=== PATIENT | female | born 1995 | race Caucasian/White ===

== ENCOUNTER 2017-07-31 20:59 | Emergency (ER) | payer OTHER ==
[~2017-07-31] VITALS: Ht 160 cm; Wt 86.2 kg
[2017-07-31] MEDS ORDERED: VENTOLIN HFA18 GM INH (21:11)
[2017-07-31] MEDS ORDERED: FLOVENT DISKUS50 MCG INH (21:12)
== END 2017-07-31 21:32 | disposition home or self-care (01) ==
LOC: ED 20:59
DX: J45.901 Unspecified asthma with (acute) exacerbation (principal); Z88.0 Allergy status to penicillin; Z88.1 Allergy status to other antibiotic agents; Z79.899 Other long term (current) drug therapy
CPT/HCPCS: 99282

== ENCOUNTER 2018-03-26 13:37 | Emergency (ER) | payer BC, OTHER ==
[~2018-03-26] VITALS: Ht 160 cm; Wt 86.2 kg
[~2018-03-26 13:37] MED LIST: FLOVENT DISKUS50 MCG INH; VENTOLIN HFA18 GM INH
--- OUTSIDE RECORDS SUMMARY | 2018-03-26 13:40 | XMS ---
PreManage Notification: HUSAM MCCAIN Security As400 Developer Events No recent Security Events currently on file CRITERIA MET - [facility] CARE PROVIDERS MITCHEL MCCARTNEY Primary Care Current PHONE: [phone] KAREN Ledbetter Current PHONE: [phone] [facility] Primary Care [facility] PRIMARY CARE CNTR PHONE: Unknown [facility] Current PHONE: Unknown Guidelines Source: [facility] [place] Guidelines Date: 01/14/2017 Care Recommendation: -This patient has been identified as having >5 ED visits within the past year at EDs in [facility]. -Provide education regarding the appropriate use of emergency services. -Encourage f/u with primary care provider. -ED Provider is encouraged to review the patient's [place] Prescription Monitoring Program profile if there are concerns about potential medication seeking behaviors ESudha VISIT COUNT (12 MO.) 1 [facility] TOTAL 3 NOTE: Visits indicate total known visits. ED/UCC VISIT TRACKING (12 MO.) 03/26/2018 13:38 BRYON De Luna TYPE: Emergency COMPLAINT: - MEDICAL CLEARANCE 07/31/2017 21:00 BRYON [place] TYPE: Emergency COMPLAINT: - SOB DIAGNOSES: - Unspecified asthma with (acute) exacerbation - Other group home (current) drug therapy - Shortness of breath - Allergy status to penicillin - Allergy status to other antibiotic agents status 04/18/2017 21:49 Mohinder GONCALVES TYPE: Emergency DIAGNOSES: 0. Other dental procedure status 0. Periapical abscess without sinus 0. Localized swelling, mass and lump, head - R SIDE FACIAL SWELLING/PAIN INPATIENT VISIT TRACKING (12 MO.) No inpatient visits to display in this time frame [email or web address]
[2018-03-26] MEDS ORDERED: HYDROXYZINE HCL25 MG PO (18:29)
== END 2018-03-26 18:40 | disposition home or self-care (01) ==
LOC: ED 13:37
DX: F32.9 Major depressive disorder, single episode, unspecified (principal); J45.909 Unspecified asthma, uncomplicated; F17.200 Nicotine dependence, unspecified, uncomplicated; Z88.0 Allergy status to penicillin; Z88.1 Allergy status to other antibiotic agents
CPT/HCPCS: 36415; 80053; 80176; 81001; 84443; 84703; 85025; 99285; G0480

== ENCOUNTER 2018-05-12 19:09 | Emergency (ER) | payer BC, OTHER ==
[~2018-05-12] VITALS: Ht 160 cm; Wt 93.4 kg
--- OUTSIDE RECORDS SUMMARY | ~2018-05-12 | XMS | Clinical Summary ---
Demographics + + + | Address | [address] [place] [address] | | | [place] [address] | + + + | Home Phone | | + + + | Preferred Language | Unknown | + + + | Marital Status | Single | + + + | Temple Affiliation | Unknown | + + + | Race | Unknown | + + + | Ethnic Group | Unknown | + + + Author + + + | Author | [facility] | | | and [place] | + + + | Organization | [facility] | | | and [place] | + + + | Address | Unknown | + + + | Phone | Unavailable | + + + Support + + + + + | Name | Relationship | Address | Phone | + + + + + | Joe Comer | ECON | [address] [place] [address] | | | | | [place] [address] | | + + + + + Care Team Providers + +------+ + | Care First Press Operator Name | Role | Phone | + +------+ + | Jodie Gomez | PP | | + +------+ + Allergies + + + + + + | Active Allergy | Reactions | Severity | Noted | Comments | | | | | Date | | + + + + + + | Amoxicillin | Shortness Of Breath | High | 12/15/19 | | | | | | 14 | | + + + + + + | Doxycycline | Sensitivity | | //20 | | | | | | 16 | | + + + + + + | Penicillins | | | //20 | | | | | | 16 | | + + + + + + Current Medications + + + +---------+------+------+-------+ | Prescription | Sig. | Disp. | Refills | Star | End | Statu | | | | | | t | Date | s | | | | | | Date | | | + + + +---------+------+------+-------+ | Vit-Fe | | | 0 | 11/1 | | Activ | | Fumarate-FA | | | | 20 | | e | | (VOL-PLUS) 27-1 MG | | | | 16 | | | | TABS | | | | | | | + + + +---------+------+------+-------+ | acetaminophen | Take 1,000 mg by | | | | | Activ | | (TYLENOL) 500 mg | mouth every 6 hours | | | | | e | | tablet | as needed for Pain. | | | | | | + + + +---------+------+------+-------+ | diphenhydrAMINE | Take 25 mg by mouth | | | | | Activ | | (BENADRYL) 25 mg | every 6 hours as | | | | | e | | tablet | needed for Itching. | | | | | | + + + +---------+------+------+-------+ | azithromycin | Take 2 tablets by | 6 | 0 | 03/2 | | Activ | | (ZITHROMAX) 250 mg | mouth on day 1, and | tablet | | 1/20 | | e | | tablet | 1 tablet by mouth | | | 17 | | | | | every day | | | | | | + + + +---------+------+------+-------+ | benzonatate | Take 1 capsule by | 30 | 0 | 10/0 | | Activ | | (TESSALON) 100 mg | mouth 3 times daily | capsule | | 4/20 | | e | | capsuleIndications: | as needed for Cough. | | | 17 | | | | Viral URI with cough | | | | | | | + + + +---------+------+------+-------+ | fluticasone | Inhale 1 puff into | 1 | 0 | 04/0 | | Activ | | (FLOVENT HFA) 220 | the lungs 2 times | Inhaler | | 9/20 | | e | | mcg/puff | daily. | | | 18 | | | | inhalerIndications: | | | | | | | | Severe persistent | | | | | | | | asthma with | | | | | | | | exacerbation, SOB | | | | | | | | (shortness of | | | | | | | | breath), Cough, | | | | | | | | Wheezing | | | | | | | + + + +---------+------+------+-------+ | albuterol 90 | Inhale 2 puffs into | 1 | 0 | 04/0 | | Activ | | mcg/puff | the lungs every 6 | Inhaler | | 9/20 | | e | | inhalerIndications: | hours as needed for | | | 18 | | | | SOB (shortness of | Wheezing. | | | | | | | breath), Cough, | | | | | | | | Wheezing | | | | | | | + + + +---------+------+------+-------+ | albuterol 2.5 mg/3 | Inhale 1-2 | 60 vial | 0 | 04/0 | | Activ | | mL nebulizer | treatments in | | | 10/28 | | e | | solutionIndications: | nebulizer every 20 | | | 18 | | | | SOB (shortness of | minutes for 3 doses, | | | | | | | breath), Cough, | then 1-4 treatments | | | | | | | Wheezing, Severe | every 1-4 hours as | | | | | | | persistent asthma | needed | | | | | | | with exacerbation | | | | | | | + + + +---------+------+------+-------+ | Respiratory | 1 kit to be used | 1 each | 0 | 04/0 | | Activ | | Therapy Supplies | with nebulized | | | 10/28 | | e | | (NEBULIZER | albuterol | | | 18 | | | | COMPRESSOR) | | | | | | | | KITIndications: SOB | | | | | | | | (shortness of | | | | | | | | breath), Cough, | | | | | | | | Wheezing, Severe | | | | | | | | persistent asthma | | | | | | | | with exacerbation | | | | | | | + + + +---------+------+------+-------+ Active Problems + + + | Problem | Noted Date | + + + | Endometriosis | 03/16/2016 | + + + Resolved Problems + + + + | Problem | Noted | Resolved | | | Date | Date | + + + + | Hand pain, right | 04/06/19 | | | | 12 | 3 | + + + + | OTHandUNSPEC SUP INJURY ELB FOREARMandWRIST INF | 05/24/19 | | | | 11 | 3 | + + + + | FOOT SPRAIN, LEFT | 11/13/19 | | | | 10 | 3 | + + + + | Sinusitis, acute | 08/23/19 | | | | 10 | 3 | + + + + | INFLUENZA | 11/21/19 | | | | 09 | 3 | + + + + Immunizations + + + + | Name | Dates Previously Given | Next Due | + + + + | DTP (PED) | 12/06/2001, 08/30/1998, 1997, | | | | 1997, 1997 | | + + + + | HIB HBOC CONJUGATE, | 1997, 1997, 1997 | | | 4 DOSE (PED) | | | + + + + | Hep B (PED/ADOL) 3 | 1997 | | | DOSE | | | + + + + | IPV, 4 DOSE | 12/06/2001 | | | (PED/ADULT) | | | + + + + | MMR, 2 DOSE | 12/06/2001, 08/30/1998 | | | (PED/ADULT) | | | + + + + | POLIOVIRUS,OPV | 08/30/1998, 1997, 1997 | | | (LIVE) | | | + + + + | TDAP, (ADOL/ADULT) | 05/02/2007 | | + + + + Family History + + +------+ + | Medical History | Relation | Name | Comments | + + +------+ + | No known problems | Father | | | + + +------+ + | No known problems | Mother | | | + + +------+ + + +------+--------+ + | Relation | Name | Status | Comments | + +------+--------+ + | Father | | Alive | | + +------+--------+ + | Mother | | Alive | | + +------+--------+ + Social History + +-------+ +--------+------+ | Tobacco Use | Types | Packs/Day | Years | Date | | | | | Used | | + +-------+ +--------+------+ | Former Smoker | | 0.25 | 2 | | + +-------+ +--------+------+ + +---+---+---+ | Smokeless Tobacco: | | | | | Never Used | | | | + +---+---+---+ + + +---------+ + | Alcohol Use | Drinks/We | oz/Week | Comments | | | ek | | | + + +---------+ + | No | 0 | 0.0 | | | | Standard | | | | | drinks or | | | | | | | | | | equivalen | | | | | t | | | + + +---------+ + + + + | Sex Assigned at | Date Recorded | | | | + + + | Not on file | | + + + Last Filed Vital Signs + + + + | Vital Sign | Reading | Time Taken | + + + + | Blood Pressure | 121/78 | 05/17/2017 1239 PDT | + + + + | Pulse | 114 | 05/17/2017 1239 PDT | + + + + | Temperature | 37.2 C (99 F) | 05/17/20171238 PDT | + + + + | Respiratory Rate | 28 | 05/17/20171238 PDT | + + + + | Oxygen Saturation | 98% | 05/17/20171250 PDT | + + + + | Inhaled Oxygen | - | - | | Concentration | | | + + + + | Weight | 86.2 kg (190 lb) | 05/17/20171238 PDT | + + + + | Height | 158.8 cm (5' 2.5") | 05/17/20171238 PDT | + + + + | Body Mass Index | 34.2 | 05/17/2017 1239 PDT | + + + + Plan of Treatment + + + + + | Health Maintenance | Due Date | Last Done | Comments | + + + + + | Well Child Check | | | | | | 1 | | | + + + + + | Vaccine: | | 05/02/2007, 12/06/2001, | | | Dtap/Tdap/Td (7 - | 8 | 12/06/2001, Additional history | | | Td) | | exists | | + + + + + | Vaccine: Influenza | | 12/02/2015 | | | (#1) | 8 | | | + + + + + | Cervical Cancer | | | | | Screening (Pap) | 9 | | | + + + + + Results Not on filefrom Last 3 Months Insurance + +--------+ +--------+-------+---------+ | Payer | Benefi | Subscriber | Type | Phone | Address | | | t Plan | ID | | | | | | / | | | | | | | Group | | | | | + +--------+ +--------+-------+---------+ | BCBS | BCBS | [id number] | PPO | | | | | [place] | [id number] | | | | | | PPO | | | | | + +--------+ +--------+-------+---------+ | COORDINATED CARE | COORDI | [id number] | Medica | | | | MEDICAID HMO | NATED | | id | | | | | CARE | | | | | | | APPLE | | | | | | | [place]ALTH | | | | | | | [place] | | | | | + +--------+ +--------+-------+---------+ + +--------+ +--------+ + + | Guarantor Name | Accoun | Relation to | Date | Phone | Billing Address | | | t Type | Patient | of | | | | | | | | | | + +--------+ +--------+ + + | HUSAM COMER | Person | Self [birth year] | Home: | [address] [place] [address] | | MARGARITA | al/Bryon | | 1995 | [phone] | [place] [address] | | | mona | | | [address] | | + +--------+ +--------+ + +
--- OUTSIDE RECORDS SUMMARY | ~2018-05-12 | XMS | Clinical Summary ---
Demographics + + + | Address | [address] [place] [address] | | | [place] [address] | + + + | Home Phone | | + + + | Preferred Language | Unknown | + + + | Marital Status | Single | + + + | Restorationism Affiliation | Unknown | + + + | Race | Unknown | + + + | Ethnic Group | Unknown | + + + Author + + + | Author | [facility] | | | and [place] | + + + | Organization | [facility] | | | and [place] | + + + | Address | Unknown | + + + | Phone | Unavailable | + + + Support + + + + + | Name | Relationship | Address | Phone | + + + + + | Joe Comer | ECON | [address] [place] [address] | | | | | [place] [address] | | + + + + + Care Team Providers + +------+ + | Care Umbrella Cutter Name | Role | Phone | + [...] +--------+ +--------+-------+---------+ | BCBS | BCBS | [id number] | PPO | | | | | OOS | 4001 | | | | | | PPO | | | | | + +--------+ +--------+-------+---------+ | COORDINATED CARE | COORDI | [id number] | Medica | | | | MEDICAID [...] | Self | [birth year] | Home: | [address] [place] [address] | | MARGARITA | al/Bryon | | 1995 | [phone] | [place] [address] | | | mona | | | [address] | | + +--------+ +--------+ + +
[~2018-05-12 19:09] MED LIST changes: +HYDROXYZINE HCL25 MG PO
--- OUTSIDE RECORDS SUMMARY | 2018-05-12 19:12 | XMS ---
PreManage Notification: HUSAM MCCAIN Security Dam Tender Assistant Events No recent Security Events currently on file CRITERIA MET - [facility] CARE PROVIDERS WALE PATTON Nurse Practitioner: Women's Health 03/28/2018-Current PHONE: [phone] MITCHEL MCCARTNEY Primary Care Current PHONE: [phone] KAREN Ledbetter Current PHONE: [phone] [facility] Primary Care Current PRIMARY CARE CNTR PHONE: Unknown [facility] Primary Care Current PHONE: Unknown Guidelines Source: [facility] Guidelines Date: 01/14/2017 Care Recommendation: -This patient has been identified as having >5 ED visits within the past year at EDs in [facility]. -Provide education regarding the appropriate use of emergency services. -Encourage f/u with primary care provider. -ED Provider is encouraged to review the patient's [place] Prescription Monitoring Program profile if there are concerns about potential medication seeking behaviors Care History Medical/Surgical 03/21/2018 [facility] - Patient is currently established with [facility]. If patient is seen in the ED during business hours. Please contact CHWs at [facility]. Care Recommendation: This patient has had 5 or more Emergency Department visits in the last 12 months.\T\nbsp; Patient requires education on the scope and purpose of the ED as an acute care provider not a Primary Care Provider and should not be utilized for chronic conditions.\T\nbsp; These are guidelines and the provider should exercise clinical judgment when providing care. E.D. VISIT COUNT (12 MO.) 3 [facility] TOTAL 3 NOTE: Visits indicate total known visits. ED/UCC VISIT TRACKING (12 MO.) 05/12/2018 19:10 BRYON [place] TYPE: Emergency COMPLAINT: - RIGHT ARM PAIN, NO INJURY 03/26/2018 13:38 BRYON [place] TYPE: Emergency COMPLAINT: - MEDICAL CLEARANCE DIAGNOSES: - Major depressive disorder, single episode, unspecified - Unspecified asthma, uncomplicated - Allergy status to penicillin - Nicotine dependence, unspecified, uncomplicated - Allergy status to other antibiotic agents status 07/31/2017 21:00 BRYON [place] TYPE: Emergency COMPLAINT: - SOB DIAGNOSES: - Unspecified asthma with (acute) exacerbation - Other senior care (current) drug therapy - Shortness of breath - Allergy status to penicillin - Allergy status to other antibiotic agents status INPATIENT VISIT TRACKING (12 MO.) No inpatient visits to display in this time frame [id number]
[2018-05-12] MEDS ORDERED: PROZAC20 MG PO (19:27)
== END 2018-05-12 21:43 | disposition home or self-care (01) ==
LOC: ED 19:09
DX: R20.8 Other disturbances of skin sensation (principal); F32.9 Major depressive disorder, single episode, unspecified; F41.9 Anxiety disorder, unspecified; J45.909 Unspecified asthma, uncomplicated; F17.200 Nicotine dependence, unspecified, uncomplicated; Z88.0 Allergy status to penicillin; Z88.1 Allergy status to other antibiotic agents; Z79.899 Other long term (current) drug therapy
CPT/HCPCS: 99283

== ENCOUNTER 2020-04-16 11:58 | Emergency (ER) | payer MEDICAID ==
[~2020-04-16] VITALS: Ht 160 cm; Wt 68.0 kg
[~2020-04-16 11:58] MED LIST changes: +ADDERALL 20 MG20 MG PO; +CYCLOBENZAPRINE5 MG PO; +LAMOTRIGINE25 MG PO; +MOTRIN IB200 MG PO; +ONDANSETRON ODT8 MG PO; +PERCOCET 5-3251 EACH PO; +PROZAC20 MG PO
[2020-04-16] MEDS ORDERED: ZOLOFT25 MG PO (12:15)
[2020-04-16] MEDS ORDERED: ADVAIR 100-501 EACH INH (12:16)
--- NOTE | 2020-04-17 17:02 | EKG ---
[facility] [address] [facility] [place], [place] [address] Signed Normal sinus rhythm with sinus arrhythmia Normal ECG No previous ECGs available Confirmed by MARTHA DIAZ MD ([id number]) on 04/17/2020 5:02:23 PM Electronically Signed By: MARTHA DIAZ MD 04/17/202 PATIENT NAME: HUSAM MCCAIN MARGARITA Electrocardiogram DATE OF : [birth year] PHYSICIAN: MARTHA DIAZ MD REPORT #: [id number] REPORT IS CONFIDENTIAL AND NOT TO BE RELEASED WITHOUT AUTHORIZATION
== END 2020-04-16 16:01 | disposition home or self-care (01) ==
LOC: ED 11:58
DX: R55 Syncope and collapse (principal); M89.8X8 Other specified disorders of bone, other site; J45.909 Unspecified asthma, uncomplicated; Z87.891 Personal history of nicotine dependence; Z88.0 Allergy status to penicillin; Z88.1 Allergy status to other antibiotic agents; Z79.899 Other long term (current) drug therapy
CPT/HCPCS: 70450; 80053; 81001; 83735; 84703; 85025; 93005; 93010; 99284-25; J7030

== ENCOUNTER 2021-06-15 08:26 | Emergency (ER) | payer OTHER ==
[~2021-06-15] VITALS: Ht 160 cm; Wt 67.9 kg
[~2021-06-15 08:26] MED LIST changes: +ADVAIR 100-501 EACH INH; +ZOLOFT25 MG PO
--- OUTSIDE RECORDS SUMMARY | 2021-06-15 08:28 | XMS ---
PreManage Notification: HUSAM MCCAIN Security Product Safety Engineer Events No recent Security Events currently on file CRITERIA MET - [facility] CARE PROVIDERS VIRIDIANA WARREN Emergency Medicine 01/14/2021-Current PHONE: [phone] WALE PATTON Nurse Practitioner: Women's Health 03/28/2018-Current PHONE: [phone] Care Guidelines exist for the following facilities: [facility] ( 08/15/2018 ) Care History Medical/Surgical 03/21/[address] [facility] - Patient is currently established with [facility]. If patient is seen in the ED during business hours. Please contact CHWs at [facility]. Care Recommendation: This patient has had 5 [...] care. E.D. VISIT COUNT (12 MO.) 3 BRYON Cazares TOTAL 3 NOTE: Visits indicate total known visits. ED/UCC VISIT TRACKING (12 MO.) 06/15/2021 08:27 BRYON [place] TYPE: Emergency COMPLAINT: - COUGH 01/12/2021 15:30 BRYON [place] TYPE: Emergency COMPLAINT: - WOUND CHECK 01/06/2021 16:31 BRYON [place] TYPE: Emergency COMPLAINT: - DIFFICULTY BREATHING DIAGNOSES: - Allergy status to other antibiotic agents - Allergy status to penicillin - Unspecified asthma with (acute) exacerbation - Other regional intermodal truck driver (current) drug therapy INPATIENT VISIT TRACKING (12 MO.) No inpatient visits to display in this time frame [id number]
[2021-06-15] MEDS ORDERED: VENTOLIN HFA18 GM INH (08:57)
[2021-06-15] MEDS ORDERED: AMPHETAMINE SALT5 MG PO (08:57)
[2021-06-15] MEDS ORDERED: FLUTICASONE-SA1 EAC4 (08:58)
[2021-06-15] MEDS ORDERED: ZITHROMAX250 MG PO (09:40)
== END 2021-06-15 10:05 | disposition home or self-care (01) ==
LOC: ED 08:26
DX: J45.909 Unspecified asthma, uncomplicated (principal); R04.2 Hemoptysis; Z88.0 Allergy status to penicillin; Z88.1 Allergy status to other antibiotic agents; Z79.899 Other long term (current) drug therapy; Z79.51 Long term (current) use of inhaled steroids
CPT/HCPCS: 71046; 99283-25

== ENCOUNTER 2021-10-18 13:49 | Emergency (ER) | payer OTHER ==
[~2021-10-18] VITALS: Ht 160 cm; Wt 63.8 kg
[~2021-10-18 13:49] MED LIST changes: +AMPHETAMINE SALT5 MG PO; +ATIVAN1 MG PO; +FLUTICASONE-SA1 EAC4; +HYDRALAZINE HCL25 MG PO; +ZITHROMAX250 MG PO
--- OUTSIDE RECORDS SUMMARY | 2021-10-18 13:52 | XMS ---
PreManage Notification: HUSAM MCCAIN Security Cottrell Blower Events No recent Security Events currently on file CRITERIA MET - [facility] CARE PROVIDERS VIRIDIANA WARREN Emergency Medicine 01/14/2021-Current PHONE: [phone] WALE PATTON Nurse Practitioner: Women's Health 03/28/2018-Current PHONE: [phone] Care Guidelines exist for the following facilities: [facility] ( 08/15/2018 ) Care History Medical/Surgical 03/21/2018 [facility] - Patient is currently established with [facility]. If patient is seen in the ED during business hours. Please contact CHWs at [facility]. Care Recommendation: This patient has had [...] providing care. E.D. VISIT COUNT (12 MO.) 5 BRYON Cazares TOTAL 5 NOTE: Visits indicate total known visits. ED/UCC VISIT TRACKING (12 MO.) 10/18/2021 13:50 BRYON [place] TYPE: Emergency COMPLAINT: - FLU SYMPTOMS 07/08/2021 16:08 BRYON [place] TYPE: Emergency COMPLAINT: - SHAKING,RAPID HEART RATE DIAGNOSES: - Anxiety disorder, unspecified - Contact with and (suspected) exposure to COVID-19 - Allergy status to other antibiotic agents - Tachycardia, unspecified - Unspecified asthma, uncomplicated - Allergy status to penicillin - Allergy status to other drugs, medicaments and biological substances 06/15/2021 08:27 BRYON [place] TYPE: Emergency COMPLAINT: - COUGH DIAGNOSES: - pitch flaker (current) use of inhaled steroids - Other emergency service worker (current) drug therapy - Unspecified asthma, uncomplicated - Allergy status to other antibiotic agents - Hemoptysis - Allergy status to penicillin - Cough, unspecified 01/12/2021 15:30 BRYON [facility] TYPE: Emergency COMPLAINT: - WOUND CHECK 01/06/2021 16:31 BRYON [facility] TYPE: Emergency COMPLAINT: - DIFFICULTY BREATHING DIAGNOSES: - Other emergency service worker (current) drug therapy - Allergy status to penicillin - Unspecified asthma with (acute) exacerbation - Allergy status to other antibiotic agents INPATIENT VISIT TRACKING (12 MO.) No inpatient visits to display in this time frame [id number]
[2021-10-18] MEDS ORDERED: PREDNISONE20 MG PO (18:52)
[2021-10-18] MEDS ORDERED: GUAIFEN-CODEINE10 ML PO (18:52)
[2021-10-18] MEDS ORDERED: VENTOLIN HFA18 GM INH (18:52)
[2021-10-18] MEDS ORDERED: ZITHROMAX250 MG PO (18:54)
== END 2021-10-18 19:37 | disposition home or self-care (01) ==
LOC: ED 13:49
DX: J40 Bronchitis, not specified as acute or chronic (principal); Z20.822 Contact with and (suspected) exposure to COVID-19; Z88.0 Allergy status to penicillin; Z88.8 Allergy status to other drugs, medicaments and biological substances; Z88.1 Allergy status to other antibiotic agents; Z79.899 Other long term (current) drug therapy
CPT/HCPCS: 36415; 80053; 85025; 85379; 87502; 94640; 96361; 96374; 99285-25; C9803; J1100; J1885; J7030; U0003

== ENCOUNTER 2022-01-01 23:39 | Emergency (ER) | payer OTHER ==
[~2022-01-01] VITALS: Ht 160 cm; Wt 71.1 kg
[~2022-01-01 23:39] MED LIST changes: +GUAIFEN-CODEINE10 ML PO; +PREDNISONE20 MG PO
--- OUTSIDE RECORDS SUMMARY | 2022-01-01 23:42 | XMS ---
PreManage Notification: HUSAM MCCAIN Security Jointer Submarine Cable Events No recent Security Events currently on file CRITERIA MET - [facility] - 2 Visits in 30 Days - [facility] CARE PROVIDERS VIRIDIANA WARREN Emergency Medicine 01/14/2021-Current PHONE: [phone] WALE PATTON Nurse Practitioner: Women's Health 03/28/2018-Current PHONE: [phone] Care Guidelines exist for the following facilities: [facility] ( 08/15/2018 ) Care History Medical/Surgical 03/21/2018 [facility] - Patient is currently established with [facility]. If patient is seen in the ED during business hours. Please contact CHWs at [facility]. Care Recommendation: This patient has had 5 [...] providing care. E.D. VISIT COUNT (12 MO.) 1 Bonnie Cazares TOTAL 7 NOTE: Visits indicate total known visits. ED/UCC VISIT TRACKING (12 MO.) 01/01/2022 23:40 BRYON [place] TYPE: Emergency COMPLAINT: - LEFT SIDE PAIN 12/19/2021 10:43 Bonnie Steve VERONICA BONNIE [place] TYPE: Emergency DIAGNOSES: - Cough, unspecified - Influenza due to other identified influenza virus with other respiratory manifestations - Fever (9 Weeks To 74 Years) - Wheezing - Fever - Shortness of breath 10/18/2021 13:50 BRYON [place] TYPE: Emergency COMPLAINT: - FLU SYMPTOMS DIAGNOSES: - Allergy status to other drugs, medicaments and biological substances - Contact with and (suspected) exposure to COVID-19 - Bronchitis, not specified as acute or chronic - Allergy status to other antibiotic agents - Other group home (current) drug therapy - Shortness of breath - Allergy status to penicillin 07/08/2021 16:08 BRYON [place] TYPE: Emergency COMPLAINT: - SHAKING,RAPID HEART RATE DIAGNOSES: - Unspecified asthma, uncomplicated - Allergy status to penicillin - Allergy status to other drugs, medicaments and biological substances - Anxiety disorder, unspecified - Contact with and (suspected) exposure to COVID-19 - Allergy status to other antibiotic agents - Tachycardia, unspecified 06/15/2021 08:27 BRYON [place] TYPE: Emergency COMPLAINT: - COUGH DIAGNOSES: - Hemoptysis - Allergy status to penicillin - Cough, unspecified - rodent exterminator (current) use of inhaled steroids - Other intermediate teacher (current) drug therapy - Unspecified asthma, uncomplicated - Allergy status to other antibiotic agents 01/12/2021 15:30 BRYON [facility] TYPE: Emergency COMPLAINT: - WOUND CHECK 01/06/2021 16:31 BRYON [place] TYPE: Emergency COMPLAINT: - DIFFICULTY BREATHING DIAGNOSES: - Unspecified asthma with (acute) exacerbation - Allergy status to other antibiotic agents - Other group home (current) drug therapy - Allergy status to penicillin INPATIENT VISIT TRACKING (12 MO.) No inpatient visits to display in this time frame [id number]
[2022-01-02] MEDS ORDERED: CYCLOBENZAPRINE10 MG PO (00:50)
== END 2022-01-02 00:55 | disposition home or self-care (01) ==
LOC: ED 23:39
DX: O99.891 Other specified diseases and conditions complicating pregnancy (principal); R10.2 Pelvic and perineal pain; Z3A.01 Less than 8 weeks gestation of pregnancy; J45.909 Unspecified asthma, uncomplicated; O99.511 Diseases of the respiratory system complicating pregnancy, first trimester; Z88.0 Allergy status to penicillin; Z88.8 Allergy status to other drugs, medicaments and biological substances; Z88.1 Allergy status to other antibiotic agents; Z79.899 Other long term (current) drug therapy
CPT/HCPCS: 36415; 80053; 81003; 85025; 99284

== ENCOUNTER 2022-05-30 01:04 | Emergency (ER) | payer OTHER ==
[~2022-05-30] VITALS: Ht 160 cm; Wt 79.2 kg
[~2022-05-30 01:04] MED LIST changes: +CYCLOBENZAPRINE10 MG PO
[2022-05-30 01:33] VITALS: BP 123/84
== END 2022-05-30 01:33 | disposition home or self-care (01) ==
LOC: ED 01:04
DX: J45.901 Unspecified asthma with (acute) exacerbation (principal); Z88.0 Allergy status to penicillin; Z88.8 Allergy status to other drugs, medicaments and biological substances

== ENCOUNTER 2022-11-14 12:07 | Emergency (ER) | payer OTHER ==
[~2022-11-14] VITALS: Ht 160 cm; Wt 81.6 kg
--- OUTSIDE RECORDS SUMMARY | 2022-11-14 12:15 | XMS ---
PreManage Notification: HUSAM MCCAIN Security Inspector Precision Events No recent Security Events currently on file CRITERIA MET - [facility] - 2 Visits in 30 Days [facility] PHONE: [phone] WALE PATTON Nurse Practitioner: Women's Health 03/28/2018-Current PHONE: [phone] -Lauren- Dentist: Marketing Assistant [employer] [facility] PHONE: [phone] Care Guidelines exist for the following facilities: [facility] ( 08/15/2018 ) Care History Medical/Surgical 03/21/2018 [facility] - Patient is currently established with [facility]. If patient is seen in the ED during business hours. Please contact CHWs at [facility]. Care Recommendation: This patient has had 5 [...] providing care. E.D. VISIT COUNT (12 MO.) 4 [facility] 1 To Steve ([facility]) TOTAL 5 NOTE: Visits indicate total known visits. ED/UCC VISIT TRACKING (12 MO.) 11/14/2022 12:07 [facility] [place] TYPE: Emergency COMPLAINT: - ABD PAIN, VAGINAL BLEEDING, 6 WEEKS 11/09/2022 13:30 [facility] [place] TYPE: Emergency COMPLAINT: - VAGINAL CRAMPING/SPOTTING, 5 WKS PG DIAGNOSES: - Abnormal uterine and vaginal bleeding, unspecified - Allergy status to narcotic agent - Allergy status to other drugs, medicaments and biological substances - Allergy status to penicillin - Less than 8 weeks gestation of - Threatened 05/30/2022 01:06 [facility] [place] TYPE: Emergency COMPLAINT: - COUGH DIAGNOSES: - Allergy status to other drugs, medicaments and biological substances - Allergy status to penicillin - Cough, unspecified - Unspecified asthma with (acute) exacerbation 01/01/2022 23:40 [facility] TYPE: Emergency COMPLAINT: - LEFT SIDE PAIN DIAGNOSES: - Allergy status to other antibiotic agents - Allergy status to other drugs, medicaments and biological substances - Allergy status to penicillin - Diseases of the respiratory system complicating , first trimester - Left lower quadrant pain - Less than 8 weeks gestation of - Other custodial (current) drug therapy - Other specified diseases and conditions complicating - Pelvic and perineal pain - Unspecified asthma, uncomplicated 12/19/2021 10:43 To [facility] [place] ([facility]) TYPE: Emergency DIAGNOSES: - Cough, unspecified - Influenza due to other identified influenza virus with other respiratory manifestations - Shortness of breath - Wheezing - Fever - Fever (9 Weeks To 74 Years) INPATIENT VISIT TRACKING (12 MO.) No inpatient visits to display in this time frame [email or web address]
[2022-11-14 12:51] LABS: BASOPHILS 0.5 % (0-2); BILIRUBIN, URINE NEGATIVE (negative); BLOOD/HGB, URINE SMALL (Negative); EOSINOPHILS 5.3 % (0-6); HEMATOCRIT 40.9 % (35.0-50.0); HEMOGLOBIN 13.8 g/dL (12.0-18.0); KETONE, URINE NEGATIVE (Negative); LEUK ESTERASE, URINE NEGATIVE (negative); LYMPHOCYTES 23.9 % (24-44); MCH 31.1 (27-36); MCHC 33.9 g/dl (30-36); MCV 91.8 fl (81-99); MONOCYTES 6.8 % (0-12); NEUTROPHILS 63.5 % (39-80); NITRITE, URINE NEGATIVE (negative); PLATELET COUNT 311 K/uL (140-440); RBC 4.45 M/ul (4.3-5.7); RDW 12.4 (10.5-15.0)
[2022-11-14 13:03] LABS: RED BLOOD CELLS, URINE 0-1 /hpf (0-5)
[2022-11-14 13:04] LABS: ALBUMIN 3.9 g/dL (3.4-5.0); ALBUMIN/GLOBULIN RATIO 1.34 (1.1-2.4); ANION GAP 14.7 (7-21); BACTERIA, URINE NONE SEEN /hpf (negative); BILIRUBIN, TOTAL 0.4 ng/dL (0.2-1.0); BUN/CREATININE RATIO 9.87 (6.0-28.6); CALCIUM 8.6 mg/dL (8.5-10.1); CASTS, URINE NONE SEEN \\lpf; COLLECTION TYPE, URINE CLEAN CATCH; CREATININE, SERUM 0.81 mg/dL (0.55-1.02); CRYSTALS, URINE NONE SEEN (0-1+); EPITHELIAL CELLS, URINE SQUAMOUS 2+ /lpf (0-1+); POTASSIUM 3.7 mmol/L (3.5-5.1); PROTEIN, TOTAL 6.8 g/dL (6.4-8.2); REFLEX CULTURE, URINE No (No)
[2022-11-14 13:29] VITALS: BP 132/62
== END 2022-11-14 13:30 | disposition home or self-care (01) ==
LOC: ED 12:07
PROVIDERS: Internal Medicine
DX: O20.0 Threatened abortion (principal); Z3A.00 Weeks of gestation of pregnancy not specified; O99.511 Diseases of the respiratory system complicating pregnancy, first trimester; J45.909 Unspecified asthma, uncomplicated; Z88.0 Allergy status to penicillin; Z88.8 Allergy status to other drugs, medicaments and biological substances; Z79.899 Other long term (current) drug therapy
CPT/HCPCS: 36415; 80053; 81001; 85025; 99284